=== PATIENT | male | born 1970 | race Caucasian/White ===

== ENCOUNTER 2021-05-18 22:03 | Observation (INO) | payer MEDICARE, SELFPAY ==
[2021-05-18 22:04] VITALS: BP 132/87; PULSE 97; RESP 19; TEMP 36.6; O2SAT 99; BMI 27.2
--- NOTE | 2021-05-18 23:06 | HMH.EDGENADL ---
ED Disposition Clinical Impression: Pyelonephritis due to Escherichia coli Disposition: Admitted As Inpatient Condition on Discharge: Fair - Critical Care Critical Care Time: No Attestation: On 05/18/21, the high probability of a clinically significant, sudden or life threatening deterioration of the following system(s) required my full and direct attention, intervention and personal management. The time I documented below is in addition to time spent performing reported procedures but includes the following listed in this critical care notation. Medical Decision Making - Medical Records Medical records reviewed: Yes: I reviewed the patient's medical records. - Haile Inquiry Pt receiving controlled substance: No Vital Signs: 05/18/21 22:04 Temperature 97.9 F Temperature Source Oral Pulse Rate [Right] 97 H Respiratory Rate 19 Blood Pressure [Right Arm] 132/87 Blood Pressure Mean [Right Arm] 102 Blood Pressure Source [Right Arm] Automatic Cuff 02 Sat by Pulse Oximetry 99 Oxygen Delivery Method Room Air - Lab Data Lab Results 05/18/21 23:12: SARS-CoV-2 (PCR) Not detected, Influenza A Untype (PCR) Not detected, Influenza Type B (PCR) Not detected 05/18/21 23:33: WBC 9.0, RBC 5.26, Hgb 12.4 L, Hct 41.6 L, MCV 79.1 L, MCH 23.6 L, MCHC 29.8 L, RDW 15.1, Plt Count 377, MPV 7.4, Neut % (Auto) 56.5, Lymph % (Auto) 33.7, [place] % (Auto) 5.5, Eos % (Auto) 3.9, Baso % (Auto) 0.5, Neut # (Auto) 5.1, Lymph # (Auto) 3.0, [place] # (Auto) 0.5, Eos # (Auto) 0.4, Baso # (Auto) 0.1 05/18/21 23:33: Sodium 141, Potassium 3.8, Chloride 101, Carbon Dioxide 27, Anion Gap 16.8 H, BUN 12, Creatinine 0.60 L, Estimated Creat Clear 176, Estimated GFR 141, Est GFR ( Amer) 171, Glucose 184 H, Calcium 9.5, Total Bilirubin 0.2, AST 91 H, ALT 97 H, Alkaline Phosphatase 191 H, Total Protein 9.2 H, Albumin 4.2, Globulin 5.0 H, Albumin/Globulin Ratio 0.8 L 05/18/21 23:33: Lactate 2.0 Result diagrams: 05/18/21 23:33 05/18/21 23:33 Orders (Tests/Meds): ED MEDICATIONS Generic Name Dose Route Start Last Admin Trade Name Freq PRN Reason Stop Dose Admin Lactated Ringer's 1,000 mls @ 100 mls/hr 05/18/21 23:30 05/18/21 23:29 Lactated Ringer's 1000 Ml Bag IV 06/17/21 23:29 100 mls/hr .Q10H MARIANA Administration Ertapenem 1 gm/ Sodium 50 mls @ 100 mls/hr 05/18/21 23:45 05/18/21 23:54 Chloride IV 06/01/21 23:44 100 mls/hr Q24H MARIANA Administration Discontinued Medications Generic Name Dose Route Start Last Admin Trade Name Freq PRN Reason Stop Dose Admin Gabapentin 400 mg 05/19/21 00:58 Gabapentin 100mg Capsule PO 05/19/21 00:59 ONCE ONE Ketorolac Tromethamine 15 mg 05/19/21 00:58 Ketorolac 30mg/Ml Vial IV 05/19/21 00:59 ONCE ONE Morphine Sulfate 4 mg 05/18/21 23:28 05/18/21 23:29 Morphine 4mg/Ml Syringe IV 05/18/21 23:29 4 mg ONCE ONE Administration Ondansetron HCl 4 mg 05/18/21 23:28 05/18/21 23:29 Ondansetron 4mg/2ml Vial IV 05/18/21 23:29 4 mg ONCE ONE Administration ORDERS Category Date Time Status Blood Culture Stat Micro 05/18/21 23:33 Received Urine Culture Stat Micro 05/19/21 00:00 Received Medical Decision Narrative: Patient is a 50-year-old male with past medical history of paraplegia, frequent urinary tract infections, chronic indwelling Seg[place] who is being evaluated for a suprapubic catheter. Patient presented to the emergency department with history of stent urinary tract infection. Given this the patient's urologist was contacted, and he informed us that patient had ESBL bacteria which was going to be treated with ertapenem. The elected to collect labs, collect a repeat urine culture, change the patient's [place]. Given his chills, his need for IV antibiotics, as well as concern for patient follow-up given that he did not want to present to his other care team due to the an hour and half way, patient was discussed with the on-call faculty this
--- NOTE | 2021-05-18 23:11 | PC.NURSE ---
@ [phone] P[address] medical exchange for Dr. Vaughn. @ [phone] Dr. Vaughn returned call and s/w Dr. Ferguson. states he was dx with ESBL UTI, sensi to Meropenem. @[phone] Dr. Ferguson s/w Dr. Loya regarding admission.
--- NOTE | 2021-05-18 23:11 | PC.NURSE ---
Have not been able to obtain PIV successfully. Staff to set up for Dr. Ferguson to attempt u/s guided IV.
[2021-05-18 23:17] LABS: Coronavirus 19, PCR Not Detected (NotDetected); Influenza A, PCR Not Detected (NotDetected); Influenza B, PCR Not Detected (NotDetected)
[2021-05-18 23:40] LABS: Basophils # 0.1 K/mm3 (0-0.2); Basophils % 0.5 % (0.1-2.0); Eosinophils # 0.4 K/mm3 (0.0-0.4); Eosinophils % 3.9 % (0.1-12.0); Hematocrit 41.6 % (42.0-52.0); Hemoglobin 12.4 g/dL (14.1-18.0); Lymphocytes % 33.7 % (10-50); Mean Corpuscular HGB Conc 29.8 g/dL (31.8-35.4); Mean Corpuscular Hemoglobin 23.6 pg (27.0-31.2); Mean Corpuscular Volume 79.1 fl (80-94); Mean Platelet Volume 7.4 fl (7.4-10.4); Monocytes # 0.5 K/mm3 (0.1-1.0); Monocytes % 5.5 % (1.7-9.3); Neutrophils # 5.1 K/mm3 (1.8-7.8); Neutrophils % 56.5 % (37.0-80.0); Platelet Count 377 K/mm3 (142-424); Red Blood Count 5.26 M/mm3 (4.60-6.20); Red Cell Distribution Width 15.1 % (11.5-17.5)
[2021-05-18 23:48] LABS: Alanine Aminotransferase 97 U/L (12-78); Albumin Level 4.2 g/dl (3.5-5.0); Albumin/Globulin Ratio 0.8 (1.1-1.8); Alkaline Phosphatase 191 U/L (38-126); Anion Gap 16.8 mEq/L (5-15); Aspartate Amino Transferase 91 U/L (17-59); Bilirubin,Total 0.2 mg/dl (0.2-1.3); Blood Urea Nitrogen 12 mg/dl (9-20); Calcium 9.5 mg/dl (8.4-10.2); Carbon Dioxide 27 mmol/L (22.0-30.0); Chloride 101 mmol/L (98-107); Creatinine Clearance Estimated 176 mL/min (50-200); Estimated Glomerular Filt Rate 141 ml/min (>60); GFR (African American) 171 ML/MIN (>60); Glucose 184 mg/dl (74-100); Potassium 3.8 mmoL/L (3.5-5.1); Sodium 141 mmol/L (136-145); Total Protein,Serum 9.2 g/dl (6.3-8.2)
[2021-05-19] VITALS (7 sets, daily range): BP systolic 122–153; BP diastolic 72–88; PULSE 80–90; RESP 16–21; TEMP 36.6–36.9; O2SAT 94–98; BMI 29.0
[2021-05-19 00:06] LABS: Microscopic, Urine URINE MICROSCOPIC (MICROSCOPIC)
[2021-05-19 00:08] LABS: Appearance,Urine SL CLOUDY (Clear); Blood, Urine 1+ (Negative); Color,Urine YELLOW (Yellow); Glucose,Urine (UA) Negative (Negative); Ketones,Urine TRACE (Negative); Leukocyte Esterase,Urine 1+ (Negative); Nitrate,Urine Negative (Negative); Protein,Urine 2+ (Negative); Specific Gravity, Urine >= 1.030 (1.005-1.030); Urobilinogen,Urine 0.2 EU/dl (0.2)
[2021-05-19 00:19] LABS: Bilirubin,Urine Negative (Negative)
[2021-05-19 00:20] LABS: Bacteria,Urine 3+ /lpf; Mucus,Urine 1+ /lpf; WBC,Urine 50-100 #/hpf (0-3)
--- NOTE | 2021-05-19 01:31 | SUR.OPER ---
patient up to floor via stretcher @ this time
--- NOTE | 2021-05-19 03:59 | PC.NURSE ---
Pt is A/O x4. Pt is paraplegia, his own wheelchair is in room. 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 Pictures in wound note. Pt states his does all dressing changes at home. Noted colostomy bag present. [place]ia is draining dark yellow urine with sedimentation. Pt lungs are CTA, VSS, call light within reach, will continue to monitor.
[2021-05-19 06:05] LABS: Basophils % 0.5 % (0.1-2.0); Eosinophils # 0.4 K/mm3 (0.0-0.4); Eosinophils % 5.4 % (0.1-12.0); Hematocrit 35.3 % (42.0-52.0); Lymphocytes # 2.3 K/mm3 (0.7-4.5); Lymphocytes % 32.9 % (10-50); Mean Corpuscular HGB Conc 29.4 g/dL (31.8-35.4); Mean Corpuscular Hemoglobin 23.6 pg (27.0-31.2); Mean Corpuscular Volume 80.2 fl (80-94); Mean Platelet Volume 6.8 fl (7.4-10.4); Monocytes # 0.4 K/mm3 (0.1-1.0); Monocytes % 6.4 % (1.7-9.3); Neutrophils # 3.8 K/mm3 (1.8-7.8); Neutrophils % 54.9 % (37.0-80.0); Platelet Count 290 K/mm3 (142-424); Red Cell Distribution Width 14.9 % (11.5-17.5); White Blood Count 6.9 K/mm3 (4.8-10.8)
[2021-05-19 06:50] LABS: Hemoglobin 10.4 g/dL (14.1-18.0)
[2021-05-19 06:51] LABS: Chloride 102 mmol/L (98-107); Sodium 136 mmol/L (136-145)
[2021-05-19 06:52] LABS: Potassium 4.4 mmoL/L (3.5-5.1)
[2021-05-19 06:54] LABS: Blood Urea Nitrogen 13 mg/dl (9-20); Creatinine Clearance Estimated 225 mL/min (50-200); Estimated Glomerular Filt Rate 175 ml/min (>60); GFR (African American) 211 ML/MIN (>60)
[2021-05-19 06:55] LABS: Anion Gap 14.4 mEq/L (5-15); Calcium 8.3 mg/dl (8.4-10.2); Carbon Dioxide 24 mmol/L (22.0-30.0); Glucose 228 mg/dl (74-100)
--- NOTE | 2021-05-19 07:28 | P.CONPHA_ITS ---
[facility] Pharmacy VTE Monitoring - Patient Demographics Admission date: 05/19/21 Report Date: 05/19/21 Time: 07:28 Allergies/Adverse Reactions: Patient Allergies diphenhydramine [From Benadryl] Allergy (Intermediate, Verified 05/18/21 22:32) Height: 1.78 m Weight: 92.079 kg Patient Problems: Current Active Problems Pyelonephritis due to Escherichia coli (Acute) - VTE Risk Labs: VTE Related Lab Results Hgb 10.4 g/dL (14.1-18.0) L D 05/19/21 05:27 Hct 35.3 % (42.0-52.0) L 05/19/21 05:27 Plt Count 290 K/mm3 (142-424) 05/19/21 05:27 BUN 13 mg/dl (9-20) 05/19/21 05:27 Creatinine 0.50 mg/dl (0.66-1.25) L 05/19/21 05:27 Estimated Creat Clear 225 mL/min (50-200) 05/19/21 05:27 Clinical Trial Participant: No - Prophylaxis VTE Prophylaxis Ordered?: Yes Types of VTE Prophylaxis: TEDS Knee High
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
--- NOTE | 2021-05-19 09:02 | XR_ITS ---
PROCEDURE: XR CHEST PORTABLE PICC PLAC CLINICAL HISTORY: Confirm PICC line placement COMPARISON: No exams were available for comparison FINDINGS: The cardiomediastinal silhouette and pulmonary vascularity are within normal limits. Right upper extremity PICC line is present. The tip is in good position in the region of the superior vena cava. Lungs are clear bilaterally. There is a bone plate along the right clavicle and postsurgical changes are present at the lower thoracic and upper lumbar spine. No acute bony abnormalities. IMPRESSION: PICC line tip in good position. Dictated by: Nitesh Torres MD 05/19/2021 11:21 Nitesh Torres MD in [place] 05/19/2021 11:21
[2021-05-19 10:19] LABS: POC Glucose,Bedside 209 (70-110)
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
--- NOTE | 2021-05-19 11:49 | SW/DCPLANNER ---
Addendum entered by [facility] 05/19/21 14:10: Марина with [facility] has stated that services for this patient will begin on Saturday05/21/21 if patient discharges home tomorrow as planned. I have asked patients nurse (Danuta) to contact [facility] software validation engineer number [phone] once discharged tomorrow. Addendum entered by [facility] 05/19/21 13:41: Wilbur Soria has stated that this patient is covered at 100%. Patient information/order has also been faxed to [facility]. I will follow up with Марина at [facility] once patient information is reviewed. Wilbur has stated that he will make contact with patients and have medication delivered to patients house [facility]. Addendum entered by [facility] 05/19/21 12:38: Wilbur Soria is currently reviewing patient information. Original Note: I spoke with this patient this AM regarding discharge plans. Patient stated that he resides at home with his whom assist him at home. is currently completing dressing changes at home. Dr Loya has stated that this patient will require a PICC line and IV antibiotics along with wound care at time of discharge. Patient is agreeable to home health services. I have faxed patient information/order to [facility] for home IV antibiotics. I will also set this patient up with home health services once [facility] provides with an out of pocket expense. Patient could discharge home over the weekend.
[2021-05-19 12:32] LABS: POC Glucose,Bedside 271 (70-110)
[2021-05-19 16:09] LABS: POC Glucose,Bedside 279 (70-110)
--- NOTE | 2021-05-19 20:09 | PC.NURSE ---
No acute changes this shift. VSS.
[2021-05-19 22:07] LABS: POC Glucose,Bedside 256 (70-110)
[2021-05-20 04:00] VITALS: BP 125/76; PULSE 96; RESP 18; TEMP 36.7; O2SAT 97
--- NOTE | 2021-05-20 04:37 | PC.NURSE ---
No acute changes. Pt has c/o pain in right leg/hip t/o shift. Medicated per MAR with favorable results. Segovia catheter in place draining clear yellow urine to gravity. Currently resting in bed. VSS. CB in reach. Will continue to monitor.
[2021-05-20 05:34] VITALS: BMI 29.0
[2021-05-20 05:36] LABS: POC Glucose,Bedside 244 (70-110)
[2021-05-20 06:05] LABS: Chloride 102 mmol/L (98-107); Potassium 4.3 mmoL/L (3.5-5.1); Sodium 136 mmol/L (136-145)
[2021-05-20 06:07] LABS: Blood Urea Nitrogen 11 mg/dl (9-20); Creatinine Clearance Estimated 188 mL/min (50-200); Estimated Glomerular Filt Rate 141 ml/min (>60); GFR (African American) 171 ML/MIN (>60)
[2021-05-20 06:08] LABS: Alanine Aminotransferase 88 U/L (12-78); Albumin Level 3.1 g/dl (3.5-5.0); Albumin/Globulin Ratio 0.8 (1.1-1.8); Alkaline Phosphatase 184 U/L (38-126); Anion Gap 12.3 mEq/L (5-15); Aspartate Amino Transferase 115 U/L (17-59); Bilirubin,Total 0.2 mg/dl (0.2-1.3); Calcium 8.6 mg/dl (8.4-10.2); Carbon Dioxide 26 mmol/L (22.0-30.0); Globulin 3.7 g/dL (1.3-3.2); Glucose 250 mg/dl (74-100); Magnesium 1.6 mg/dl (1.6-2.3); Total Protein,Serum 6.8 g/dl (6.3-8.2)
[2021-05-20 06:14] LABS: Basophils % 0.5 % (0.1-2.0); Eosinophils # 0.4 K/mm3 (0.0-0.4); Eosinophils % 6.9 % (0.1-12.0); Hematocrit 35.7 % (42.0-52.0); Hemoglobin 10.4 g/dL (14.1-18.0); Lymphocytes # 1.8 K/mm3 (0.7-4.5); Lymphocytes % 31.8 % (10-50); Mean Corpuscular HGB Conc 29.3 g/dL (31.8-35.4); Mean Corpuscular Hemoglobin 23.5 pg (27.0-31.2); Mean Corpuscular Volume 80.5 fl (80-94); Mean Platelet Volume 7.5 fl (7.4-10.4); Monocytes # 0.3 K/mm3 (0.1-1.0); Monocytes % 5.4 % (1.7-9.3); Neutrophils # 3.2 K/mm3 (1.8-7.8); Neutrophils % 55.4 % (37.0-80.0); Platelet Count 275 K/mm3 (142-424); Red Blood Count 4.43 M/mm3 (4.60-6.20); Red Cell Distribution Width 15.6 % (11.5-17.5); White Blood Count 5.8 K/mm3 (4.8-10.8)
[2021-05-20 06:46] LABS: Hemoglobin A1C 10.5 % (4.0-6.0)
[2021-05-20 08:00] VITALS: BP 143/78; PULSE 89; RESP 16; TEMP 36.6; O2SAT 94
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
--- NOTE | 2021-05-20 13:54 | HMH.PHAINT ---
MEDICATION DISCHARGE COUNSELING COMPLETE. DISCUSSED THE INVANZ INFUSION, WHAT TO EXPECT. PATIENT ENDORSED NO QUESTIONS AT THIS TIME.
[2021-05-20 17:20] LABS: POC Glucose,Bedside 249 (70-110)
== END 2021-05-20 14:24 | disposition home health service (06) ==
LOC: ER 22:13 → 2ND 23:44
PROVIDERS: Admitting Provider Internal Medicine Adolescent Medicine; Emergency Provider Emergency Medicine; Visit Provider Internal Medicine Adolescent Medicine
DX: N12 Tubulo-interstitial nephritis, not specified as acute or chronic (principal); B96.20 Unspecified Escherichia coli [E. coli] as the cause of diseases classified elsewhere; Z79.4 Long term (current) use of insulin; G82.20 Paraplegia, unspecified; Z16.12 Extended spectrum beta lactamase (ESBL) resistance; E11.69 Type 2 diabetes mellitus with other specified complication; M86.661 Other chronic osteomyelitis, right tibia and fibula; B18.2 Chronic viral hepatitis C; G89.29 Other chronic pain; M79.604 Pain in right leg; L98.499 Non-pressure chronic ulcer of skin of other sites with unspecified severity; Z20.822 Contact with and (suspected) exposure to COVID-19; Z79.899 Other long term (current) drug therapy
CPT/HCPCS: G0378; 36415; 36569; 71045; 80048; 80053; 81001; 82962; 83036; 83605; 83735; 85025; 87040; 87086; 87088; 87186; 96365; 96367; 96375; 99284; C1751; C9803; J1335; J2405; U0003; U0005

== ENCOUNTER 2021-06-01 12:30 | Emergency (ER) | payer MEDICARE, SELFPAY ==
[2021-06-01] VITALS (8 sets, daily range): BP systolic 137–151; BP diastolic 80–98; PULSE 90–116; RESP 18–22; TEMP 37.7; O2SAT 93–98; BMI 27.1
[2021-06-01 13:03] LABS: POC Glucose,Bedside 456 (70-110)
[2021-06-01 13:07] LABS: Microscopic, Urine URINE MICROSCOPIC (MICROSCOPIC)
[2021-06-01 13:08] LABS: Appearance,Urine CLEAR (Clear); Bilirubin,Urine Negative (Negative); Blood, Urine TRACE-I (Negative); Color,Urine YELLOW (Yellow); Glucose,Urine (UA) 3+ (Negative); Ketones,Urine Negative (Negative); Leukocyte Esterase,Urine Negative (Negative); Nitrate,Urine Negative (Negative); PH,Urine 5.5 (5.0-8.5); Protein,Urine Negative (Negative); Urobilinogen,Urine 0.2 EU/dl (0.2)
[2021-06-01 13:11] LABS: Chloride 95 mmol/L (98-107); Sodium 134 mmol/L (136-145)
[2021-06-01 13:12] LABS: Potassium 4.5 mmoL/L (3.5-5.1)
[2021-06-01 13:14] LABS: Alanine Aminotransferase 344 U/L (12-78); Albumin Level 4.1 g/dl (3.5-5.0); Albumin/Globulin Ratio 0.9 (1.1-1.8); Alkaline Phosphatase 437 U/L (38-126); Anion Gap 15.5 mEq/L (5-15); Aspartate Amino Transferase 436 U/L (17-59); Bilirubin,Total 1.3 mg/dl (0.2-1.3); Blood Urea Nitrogen 15 mg/dl (9-20); Calcium 9.1 mg/dl (8.4-10.2); Carbon Dioxide 28 mmol/L (22.0-30.0); Creatinine Clearance Estimated 185 mL/min (50-200); Estimated Glomerular Filt Rate 141 ml/min (>60); GFR (African American) 171 ML/MIN (>60); Globulin 4.4 g/dL (1.3-3.2); Total Protein,Serum 8.5 g/dl (6.3-8.2)
[2021-06-01 13:19] LABS: Glucose 465 mg/dl (74-100)
[2021-06-01 13:27] LABS: Bacteria,Urine 1+ /lpf; RBC,Urine Occasional #/hpf (0-3)
--- NOTE | 2021-06-01 14:35 | HMH.EDGENADL ---
ED Disposition Clinical Impression: Diabetes mellitus Qualifiers: Diabetes mellitus type: other specified (including LIGIA) Diabetes mellitus fci insulin use: with fci use Diabetes mellitus complication status: with hyperglycemia Qualified Code(s): E13.65 - Other specified diabetes mellitus with hyperglycemia Disposition: Home, Self-Care Condition on Discharge: Good Instructions: DI for Hyperglycemia -- Adult Additional Instructions: Commend increasing your morning insulin from 75 up to 85. Continue to reassess your blood sugar it is important to drink plenty of fluids. Follow-up with your primary care doctor early next week with your blood sugars so we can know how this is working for you. Is also important to follow-up with the roll mill operator, establish a better plan. Referrals: Herson Loya MD [Primary Care Provider] - - Critical Care Critical Care Time: No Attestation: On 06/01/21, the high probability of a clinically significant, sudden or life threatening deterioration of the following system(s) required my full and direct attention, intervention and personal management. The time I documented below is in addition to time spent performing reported procedures but includes the following listed in this critical care notation. Medical Decision Making - Medical Records Medical records reviewed: Yes: I reviewed the patient's medical records. - Haile Inquiry Pt receiving controlled substance: No Vital Signs: 06/01/21 12:30 06/01/21 13:55 06/01/21 14:30 Temperature 99.8 F H Temperature Source Oral Pulse Rate 107 H 99 H Pulse Rate [Left Radial] 116 H Respiratory Rate 20 18 20 Blood Pressure 147/89 H 151/98 H Blood Pressure [Right Arm] 145/95 H Blood Pressure Mean 123 116 Blood Pressure Mean [Right Arm] 111 Blood Pressure Source Blood Pressure Source [Right Arm] Automatic Cuff Blood Pressure Position Blood Pressure Position [Right Arm] Sitting 02 Sat by Pulse Oximetry 96 98 94 L Oxygen Delivery Method Room Air 06/01/21 15:01 06/01/21 15:30 06/01/21 16:00 Temperature Temperature Source Pulse Rate 96 H 90 90 Pulse Rate [Left Radial] Respiratory Rate 20 20 22 Blood Pressure 139/80 138/80 137/86 Blood Pressure [Right Arm] Blood Pressure Mean 99 95 103 Blood Pressure Mean [Right Arm] Blood Pressure Source Blood Pressure Source [Right Arm] Blood Pressure Position Blood Pressure Position [Right Arm] 02 Sat by Pulse Oximetry 93 L 96 97 Oxygen Delivery Method 06/01/21 16:31 06/01/21 17:04 Temperature 99.8 F H Temperature Source Pulse Rate 98 H 96 H Pulse Rate [Left Radial] Respiratory Rate 20 20 Blood Pressure 140/85 140/85 Blood Pressure [Right Arm] Blood Pressure Mean 101 Blood Pressure Mean [Right Arm] Blood Pressure Source Automatic Cuff Blood Pressure Source [Right Arm] Blood Pressure Position Sitting Blood Pressure Position [Right Arm] 02 Sat by Pulse Oximetry 96 Oxygen Delivery Method Room Air - Lab Data Lab results reviewed: Yes: I reviewed the patient's lab results. Lab Results 06/01/21 12:42: POC Glucose 456 H* 06/01/21 12:50: Urine Color Yellow, Urine Appearance Clear, Urine pH 5.5, Ur Specific [place] 1.020, Urine Protein Negative, Urine Glucose (UA) 3+, Urine Ketones Negative, Urine Blood Trace-i, Urine Nitrate Negative, Urine Bilirubin Negative, Urine Urobilinogen 0.2, Ur Leukocyte Esterase Negative, Urine RBC Occasional, Urine WBC None, Ur Squamous Epith Cells None, Urine Bacteria 1+ 06/01/21 12:50: WBC 7.4, RBC 5.56, Hgb 13.2 L, Hct 44.2, MCV 79.6 L, MCH 23.7 L, MCHC 29.7 L, RDW 15.6, Plt Count 285, MPV 8.2, Neut % (Auto) 51.9, Lymph % (Auto) 37.0, [place] % (Auto) 6.8, Eos % (Auto) 3.6, Baso % (Auto) 0.7, Neut # (Auto) 3.8, Lymph # (Auto) 2.7, [place] # (Auto) 0.5, Eos # (Auto) 0.3, Baso # (Auto) 0.1 06/01/21 12:50: Sodium 134 L, Potassium 4.5, Chloride 95 L, Carbon Dioxide 28, Anion Gap 15.5 H, BUN 15
[2021-06-01 14:44] LABS: Basophils # 0.1 K/mm3 (0-0.2); Basophils % 0.7 % (0.1-2.0); Eosinophils # 0.3 K/mm3 (0.0-0.4); Eosinophils % 3.6 % (0.1-12.0); Hematocrit 44.2 % (42.0-52.0); Hemoglobin 13.2 g/dL (14.1-18.0); Lymphocytes # 2.7 K/mm3 (0.7-4.5); Mean Corpuscular HGB Conc 29.7 g/dL (31.8-35.4); Mean Corpuscular Hemoglobin 23.7 pg (27.0-31.2); Mean Corpuscular Volume 79.6 fl (80-94); Mean Platelet Volume 8.2 fl (7.4-10.4); Monocytes # 0.5 K/mm3 (0.1-1.0); Monocytes % 6.8 % (1.7-9.3); Neutrophils # 3.8 K/mm3 (1.8-7.8); Neutrophils % 51.9 % (37.0-80.0); Platelet Count 285 K/mm3 (142-424); Red Blood Count 5.56 M/mm3 (4.60-6.20); Red Cell Distribution Width 15.6 % (11.5-17.5); White Blood Count 7.4 K/mm3 (4.8-10.8)
[2021-06-01 15:30] LABS: POC Glucose,Bedside 239 (70-110)
== END 2021-06-01 17:05 | disposition home or self-care (01) ==
PROVIDERS: Emergency Provider Emergency Medicine; PCP Internal Medicine Adolescent Medicine
DX: E13.65 Other specified diabetes mellitus with hyperglycemia (principal); Z79.4 Long term (current) use of insulin; I10 Essential (primary) hypertension; F17.210 Nicotine dependence, cigarettes, uncomplicated; K73.9 Chronic hepatitis, unspecified; G82.20 Paraplegia, unspecified
CPT/HCPCS: 80053; 81001; 82009; 82962; 85025; 96365; 96375; 99282; J2405

== ENCOUNTER → 2021-06-06 15:19 | Outpatient (CLI) | payer MEDICARE, SELFPAY ==
[2021-06-06 15:21] LABS: Microscopic, Urine URINE MICROSCOPIC (MICROSCOPIC)
[2021-06-06 15:39] LABS: Appearance,Urine CLOUDY (Clear); Blood, Urine 3+ (Negative); Color,Urine YELLOW (Yellow); Glucose,Urine (UA) Negative (Negative); Ketones,Urine Negative (Negative); Leukocyte Esterase,Urine TRACE (Negative); Nitrate,Urine Negative (Negative); Protein,Urine 1+ (Negative); Specific Gravity, Urine >= 1.030 (1.005-1.030)
[2021-06-06 15:41] LABS: Bilirubin,Urine 1+ (Negative)
[2021-06-06 15:56] LABS: Bacteria,Urine Trace /lpf; RBC,Urine TNTC #/hpf (0-3); Squamous Epithelial Cell,Urine Occasional #/hpf (0-5)
== END ==
LOC: LAB 15:20
PROVIDERS: Visit Provider Internal Medicine Adolescent Medicine
DX: S31.20XA Unspecified open wound of penis, initial encounter (principal); B96.20 Unspecified Escherichia coli [E. coli] as the cause of diseases classified elsewhere
CPT/HCPCS: 81001; 87070; 87077; 87186; 87205

== ENCOUNTER 2021-06-10 17:11 | Emergency (ER) | payer MEDICARE, SELFPAY ==
[2021-06-10 17:36] VITALS: BP 129/65; PULSE 107; RESP 18; TEMP 37.4; O2SAT 98; BMI 25.5
[2021-06-10 17:37] LABS: POC Glucose,Bedside 415 (70-110)
--- NOTE | 2021-06-10 17:44 | PC.NURSE ---
Called RT to request ABG's
--- NOTE | 2021-06-10 17:55 | HMH.EDGENADL ---
ED Disposition Clinical Impression: Paraplegia Diabetes mellitus Qualifiers: Diabetes mellitus type: type 1 Diabetes mellitus complication status: with other specified complication Qualified Code(s): E10.69 - Type 1 diabetes mellitus with other specified complication Chronic pain Qualifiers: Chronic pain type: chronic pain syndrome Qualified Code(s): G89.4 - Chronic pain syndrome Disposition: Home, Self-Care Condition on Discharge: Good Instructions: DI for Hyperglycemia -- Adult Prescriptions: methocarbamoL [Methocarbamol] 750 mg PO QID 7 Days #28 tab Transmission Status: Pending to [email or web address] #[id number] Referrals: Herson Loya MD [Primary Care Provider] - - Critical Care Critical Care Time: No Attestation: On 06/10/21, the high probability of a clinically significant, sudden or life threatening deterioration of the following system(s) required my full and direct attention, intervention and personal management. The time I documented below is in addition to time spent performing reported procedures but includes the following listed in this critical care notation. Medical Decision Making - Medical Records Medical records reviewed: Yes: I reviewed the patient's medical records. - Haile Inquiry Pt receiving controlled substance: Yes Haile was queried for this patient: Yes Reference #:: [id number] Risks and benefits of using a controlled substance: were discussed with pt by me Vital Signs: 06/10/21 17:36 06/10/21 18:35 Temperature 99.3 F Temperature Source Oral Pulse Rate 76 Pulse Rate [Right Radial] 107 H Respiratory Rate 18 16 Blood Pressure 154/84 H Blood Pressure [Right Arm] 129/65 Blood Pressure Mean [Right Arm] 86 Blood Pressure Source Automatic Cuff Blood Pressure Source [Right Arm] Automatic Cuff Blood Pressure Position Sitting Blood Pressure Position [Right Arm] Sitting 02 Sat by Pulse Oximetry 98 98 Oxygen Delivery Method Room Air Room Air - Lab Data Lab Results 06/10/21 17:30: POC Glucose 415 H* 06/10/21 18:15: Urine Color Yellow, Urine Appearance Clear, Urine pH 5.5, Ur Specific [place] >= 1.030, Urine Protein Trace, Urine Glucose (UA) 3+, Urine Ketones Negative, Urine Blood 2+, Urine Nitrate Negative, Urine Bilirubin Negative, Urine Urobilinogen 0.2, Ur Leukocyte Esterase Negative 06/10/21 18:15: WBC 9.2, RBC 5.17, Hgb 12.1 L, Hct 40.4 L, MCV 78.1 L, MCH 23.4 L, MCHC 30.0 L, RDW 16.0, Plt Count 390, MPV 7.5, Neut % (Auto) 65.7, Lymph % (Auto) 24.7, [place] % (Auto) 5.8, Eos % (Auto) 3.1, Baso % (Auto) 0.7, Neut # (Auto) 6.1, Lymph # (Auto) 2.3, [place] # (Auto) 0.5, Eos # (Auto) 0.3, Baso # (Auto) 0.1 06/10/21 18:15: Sodium 134 L, Potassium 4.4, Chloride 97 L, Carbon Dioxide 28, Anion Gap 13.4, BUN 14, Creatinine 0.70, Estimated Creat Clear 166, Estimated GFR 118, Est GFR ( Amer) 143, Glucose 399 H, Calcium 8.9, Total Bilirubin 0.5, AST 38, ALT 34, Alkaline Phosphatase 162 H, Total Protein 8.2, Albumin 4.1, Globulin 4.1 H, Albumin/Globulin Ratio 1.0 L, Acetone Level None detected 06/10/21 18:30: VBG pH 7.37, VBG pCO2 43.7, VBG pO2 41.0 H, VBG HCO3 24.5, VBG Total CO2 25.8, VBG O2 Saturation 75.8 H, VBG Base Excess -0.9 Result diagrams: 06/10/21 18:15 06/10/21 18:15 Orders (Tests/Meds): ED MEDICATIONS Generic Name Dose Route Start Last Admin Trade Name Freq PRN Reason Stop Dose Admin Sodium Chloride 1,000 mls @ 999 mls/hr 06/10/21 17:45 06/10/21 18:21 Sod Chlor 0.9% 1000ml Bag IV 06/10/21 18:45 999 mls/hr .[id number] MARIANA Administration Discontinued Medications Generic Name Dose Route Start Last Admin Trade Name Freq PRN Reason Stop Dose Admin Insulin Human Regular 10 unit 06/10/21 18:38 Insulin Human Regular 100 Units/Ml 10ml Vial IVP 06/10/21 18:39 ONCE ONE Morphine Sulfate 4 mg 06/10/21 17:34 06/10/21 18:23 Morphine 4mg/Ml Syringe IV 06/10/21 17:35 4 mg ONCE ONE Administration Ondansetron HCl 4 mg 06/10/21 17:34 11
[2021-06-10 18:22] LABS: Microscopic, Urine URINE MICROSCOPIC (MICROSCOPIC)
[2021-06-10 18:23] LABS: Basophils # 0.1 K/mm3 (0-0.2); Basophils % 0.7 % (0.1-2.0); Eosinophils # 0.3 K/mm3 (0.0-0.4); Eosinophils % 3.1 % (0.1-12.0); Hematocrit 40.4 % (42.0-52.0); Hemoglobin 12.1 g/dL (14.1-18.0); Lymphocytes # 2.3 K/mm3 (0.7-4.5); Lymphocytes % 24.7 % (10-50); Mean Corpuscular Hemoglobin 23.4 pg (27.0-31.2); Mean Corpuscular Volume 78.1 fl (80-94); Mean Platelet Volume 7.5 fl (7.4-10.4); Monocytes # 0.5 K/mm3 (0.1-1.0); Monocytes % 5.8 % (1.7-9.3); Neutrophils # 6.1 K/mm3 (1.8-7.8); Neutrophils % 65.7 % (37.0-80.0); Platelet Count 390 K/mm3 (142-424); Red Blood Count 5.17 M/mm3 (4.60-6.20); White Blood Count 9.2 K/mm3 (4.8-10.8)
[2021-06-10 18:25] LABS: Appearance,Urine CLEAR (Clear); Bilirubin,Urine Negative (Negative); Blood, Urine 2+ (Negative); Color,Urine YELLOW (Yellow); Glucose,Urine (UA) 3+ (Negative); Ketones,Urine Negative (Negative); Leukocyte Esterase,Urine Negative (Negative); Nitrate,Urine Negative (Negative); PH,Urine 5.5 (5.0-8.5); Protein,Urine TRACE (Negative); Specific Gravity, Urine >= 1.030 (1.005-1.030); Urobilinogen,Urine 0.2 EU/dl (0.2)
[2021-06-10 18:29] LABS: Chloride 97 mmol/L (98-107); Potassium 4.4 mmoL/L (3.5-5.1); Sodium 134 mmol/L (136-145)
[2021-06-10 18:30] VITALS: BP 154/84; PULSE 97; RESP 15; O2SAT 95
[2021-06-10 18:31] LABS: Blood Urea Nitrogen 14 mg/dl (9-20); Creatinine Clearance Estimated 166 mL/min (50-200); Estimated Glomerular Filt Rate 118 ml/min (>60); GFR (African American) 143 ML/MIN (>60)
[2021-06-10 18:32] LABS: VBG Base Excess -0.9 mmol/L (-2.4-2.3); VBG HCO3 24.5 mmol/L (23-30); VBG Oxygen Saturation 75.8 % (50-70); VBG PCO2 43.7 mmol/L (35-51); VBG PH 7.37 mmol/L (7.31-7.41); VBG Total CO2 25.8 mmol/L (23-27)
[2021-06-10 18:32] LABS: Alanine Aminotransferase 34 U/L (12-78); Albumin Level 4.1 g/dl (3.5-5.0); Alkaline Phosphatase 162 U/L (38-126); Anion Gap 13.4 mEq/L (5-15); Aspartate Amino Transferase 38 U/L (17-59); Bilirubin,Total 0.5 mg/dl (0.2-1.3); Calcium 8.9 mg/dl (8.4-10.2); Carbon Dioxide 28 mmol/L (22.0-30.0); Globulin 4.1 g/dL (1.3-3.2); Glucose 399 mg/dl (74-100); Total Protein,Serum 8.2 g/dl (6.3-8.2)
[2021-06-10 18:35] VITALS: BP 154/84; PULSE 76; RESP 16; O2SAT 98
[2021-06-10 18:46] LABS: Acetone, Serum (Rapid) None Detected (None Detect)
[2021-06-10 19:05] LABS: Squamous Epithelial Cell,Urine Occasional #/hpf (0-5)
[2021-06-10 20:21] VITALS: BP 143/80; PULSE 78; RESP 18; TEMP 36.8; O2SAT 96
== END 2021-06-10 20:25 | disposition home or self-care (01) ==
PROVIDERS: Emergency Provider Emergency Medicine; PCP Internal Medicine Adolescent Medicine
DX: E10.65 Type 1 diabetes mellitus with hyperglycemia (principal); M83.8 Other adult osteomalacia; L89.154 Pressure ulcer of sacral region, stage 4; F17.210 Nicotine dependence, cigarettes, uncomplicated; I10 Essential (primary) hypertension; G82.20 Paraplegia, unspecified
CPT/HCPCS: 80053; 81001; 82009; 82803; 82962; 85025; 96365; 96375; 99282; J2405

== ENCOUNTER 2021-06-13 09:53 | Outpatient (CLI) | payer MEDICARE, SELFPAY ==
[2021-06-13 11:05] VITALS: BMI 29.9
--- NOTE | 2021-06-13 11:06 | XR_ITS ---
PROCEDURE: XR CHEST PORTABLE PICC PLAC CLINICAL HISTORY: picc placement COMPARISON: CR XR CHEST PORTABLE PICC PLAC from 05/19/2021 FINDINGS: Left upper extremity PICC line has been placed. The tip is in good position in the region of the superior vena cava. Right-sided PICC line is been removed. Postsurgical changes are present with a metallic hardware along the right clavicle and in the upper lumbar IMPRESSION: Left upper extremity PICC line tip in good position Dictated by: Nitesh Torres MD 06/13/2021 11:37 Nitesh Torres MD in [facility] 06/13/2021 11:37
[2021-06-13 11:49] VITALS: BP 160/93; PULSE 92; RESP 18; O2SAT 98
[2021-06-13 12:55] VITALS: BP 144/78; PULSE 54; RESP 18
== END 2021-06-13 12:55 | disposition home or self-care (01) ==
LOC: INF 09:54
PROVIDERS: PCP Internal Medicine Adolescent Medicine; Visit Provider Internal Medicine Adolescent Medicine
DX: N39.0 Urinary tract infection, site not specified (principal); B96.20 Unspecified Escherichia coli [E. coli] as the cause of diseases classified elsewhere; Z45.2 Encounter for adjustment and management of vascular access device
CPT/HCPCS: 36410; 36569; 71045; 96365; C1751; J1335

== ENCOUNTER → 2021-06-15 15:07 | Outpatient (CLI) | payer MEDICARE, SELFPAY ==
[2021-06-15 15:49] LABS: Basophils # 0.1 K/mm3 (0-0.2); Basophils % 0.8 % (0.1-2.0); Eosinophils # 0.4 K/mm3 (0.0-0.4); Eosinophils % 4.5 % (0.1-12.0); Hemoglobin 11.7 g/dL (14.1-18.0); Lymphocytes # 2.8 K/mm3 (0.7-4.5); Lymphocytes % 34.2 % (10-50); Mean Corpuscular HGB Conc 30.9 g/dL (31.8-35.4); Mean Corpuscular Hemoglobin 23.5 pg (27.0-31.2); Mean Corpuscular Volume 75.9 fl (80-94); Mean Platelet Volume 7.4 fl (7.4-10.4); Monocytes # 0.5 K/mm3 (0.1-1.0); Monocytes % 5.9 % (1.7-9.3); Neutrophils # 4.5 K/mm3 (1.8-7.8); Neutrophils % 54.6 % (37.0-80.0); Platelet Count 374 K/mm3 (142-424); Red Cell Distribution Width 16.1 % (11.5-17.5); White Blood Count 8.2 K/mm3 (4.8-10.8)
[2021-06-15 17:04] LABS: Alanine Aminotransferase 19 U/L (12-78); Albumin Level 3.7 g/dl (3.5-5.0); Alkaline Phosphatase 133 U/L (38-126); Anion Gap 14.2 mEq/L (5-15); Aspartate Amino Transferase 24 U/L (17-59); Bilirubin,Total 0.2 mg/dl (0.2-1.3); Blood Urea Nitrogen 13 mg/dl (9-20); Calcium 8.7 mg/dl (8.4-10.2); Carbon Dioxide 28 mmol/L (22.0-30.0); Chloride 100 mmol/L (98-107); Estimated Glomerular Filt Rate 118 ml/min (>60); GFR (African American) 143 ML/MIN (>60); Globulin 3.8 g/dL (1.3-3.2); Glucose 270 mg/dl (74-100); Potassium 4.2 mmoL/L (3.5-5.1); Sodium 138 mmol/L (136-145); Total Protein,Serum 7.5 g/dl (6.3-8.2)
== END ==
LOC: LAB 15:08
PROVIDERS: Visit Provider Nurse Practitioner
DX: B18.2 Chronic viral hepatitis C (principal)
CPT/HCPCS: 80053; 85025; 87522

== ENCOUNTER 2021-06-30 23:11 | Emergency (ER) | payer MEDICARE, SELFPAY ==
[2021-06-30 23:13] VITALS: BP 129/89; PULSE 100; RESP 16; TEMP 37.2; O2SAT 99; BMI 27.8
[2021-06-30 23:30] VITALS: BP 124/80; PULSE 97; O2SAT 97
[2021-06-30 23:36] VITALS: BMI 27.8
[2021-06-30 23:54] LABS: Basophils # 0.1 K/mm3 (0-0.2); Basophils % 0.7 % (0.1-2.0); Eosinophils # 0.3 K/mm3 (0.0-0.4); Eosinophils % 3.7 % (0.1-12.0); Hematocrit 38.8 % (42.0-52.0); Lymphocytes % 35.6 % (10-50); Mean Corpuscular Hemoglobin 23.5 pg (27.0-31.2); Mean Corpuscular Volume 75.9 fl (80-94); Mean Platelet Volume 8.1 fl (7.4-10.4); Monocytes # 0.4 K/mm3 (0.1-1.0); Monocytes % 5.2 % (1.7-9.3); Neutrophils # 4.6 K/mm3 (1.8-7.8); Neutrophils % 54.9 % (37.0-80.0); Platelet Count 328 K/mm3 (142-424); Red Blood Count 5.11 M/mm3 (4.60-6.20); Red Cell Distribution Width 16.1 % (11.5-17.5); White Blood Count 8.4 K/mm3 (4.8-10.8)
[2021-07-01 00:02] LABS: Lactic Acid 1.7 mmol/L (0.7-2.1)
[2021-07-01 00:09] LABS: Alanine Aminotransferase 11 U/L (12-78); Albumin Level 3.9 g/dl (3.5-5.0); Alkaline Phosphatase 153 U/L (38-126); Anion Gap 10.9 mEq/L (5-15); Aspartate Amino Transferase 21 U/L (17-59); Bilirubin,Total 0.3 mg/dl (0.2-1.3); Blood Urea Nitrogen 15 mg/dl (9-20); Calcium 8.8 mg/dl (8.4-10.2); Carbon Dioxide 27 mmol/L (22.0-30.0); Chloride 98 mmol/L (98-107); Creatinine Clearance Estimated 162 mL/min (50-200); Estimated Glomerular Filt Rate 118 ml/min (>60); GFR (African American) 143 ML/MIN (>60); Glucose 382 mg/dl (74-100); Potassium 3.9 mmoL/L (3.5-5.1); Sodium 132 mmol/L (136-145); Total Protein,Serum 7.9 g/dl (6.3-8.2)
[2021-07-01 00:12] LABS: C-Reactive Protein 69.9 mg/L (0-4)
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
[2021-07-01 00:26] LABS: Procalcitonin 0.068 ng/mL (0.0-2.0)
[2021-07-01 00:34] LABS: Erythrocyte Sedimentation Rate 22 mm/hr (0-20)
[2021-07-01 00:40] VITALS: BP 124/77; PULSE 96; O2SAT 97
[2021-07-01 01:00] VITALS: BP 128/78; PULSE 96; O2SAT 97
[2021-07-01 01:17] LABS: Microscopic, Urine URINE MICROSCOPIC (MICROSCOPIC)
[2021-07-01 01:18] LABS: Appearance,Urine CLEAR (Clear); Bilirubin,Urine Negative (Negative); Blood, Urine 2+ (Negative); Color,Urine YELLOW (Yellow); Glucose,Urine (UA) 3+ (Negative); Ketones,Urine Negative (Negative); Leukocyte Esterase,Urine Negative (Negative); Nitrate,Urine Negative (Negative); PH,Urine 5.5 (5.0-8.5); Protein,Urine 2+ (Negative); Specific Gravity, Urine >= 1.030 (1.005-1.030); Urobilinogen,Urine 0.2 EU/dl (0.2)
[2021-07-01 01:21] LABS: Calcium Oxalate Crystals,Urine 2+ /lpf; Squamous Epithelial Cell,Urine Occasional #/hpf (0-5)
[2021-07-01 01:30] VITALS: BP 125/80; PULSE 95; O2SAT 96
--- NOTE | 2021-07-01 01:51 | HMH.EDGENADL ---
ED Disposition Clinical Impression: Paraplegia, Sacral decubitus ulcer, stage IV, Chronic pain disorder Type 2 diabetes mellitus Qualifiers: Diabetes mellitus penitentiary insulin use: unspecified exterminator helper termite insulin use status Diabetes mellitus complication status: with other specified complication Qualified Code(s): E11.69 - Type 2 diabetes mellitus with other specified complication Osteomyelitis Qualifiers: Osteomyelitis type: unspecified type Osteomyelitis location: multiple sites Qualified Code(s): M86.9 - Osteomyelitis, unspecified Disposition: Home, Self-Care Condition on Discharge: Good Instructions: DI for Acute Pain -- Adult Additional Instructions: call pcp in am and continue present meds Referrals: Herson Loya MD [Primary Care Provider] - - Critical Care Critical Care Time: No Attestation: On 06/30/21, the high probability of a clinically significant, sudden or life threatening deterioration of the following system(s) required my full and direct attention, intervention and personal management. The time I documented below is in addition to time spent performing reported procedures but includes the following listed in this critical care notation. Medical Decision Making - Medical Records Medical records reviewed: Yes: I reviewed the patient's medical records. - Haile Inquiry Pt receiving controlled substance: No Vital Signs: 06/30/21 23:13 06/30/21 23:30 07/01/21 00:40 Temperature 99.0 F Temperature Source Oral Pulse Rate 97 H 96 H Pulse Rate [Right] 100 H Respiratory Rate 16 Blood Pressure 124/80 124/77 Blood Pressure [Right Arm] 129/89 Blood Pressure Mean [Right Arm] 102 02 Sat by Pulse Oximetry 99 97 97 07/01/21 01:00 07/01/21 01:30 Temperature Temperature Source Pulse Rate 96 H 95 H Pulse Rate [Right] Respiratory Rate Blood Pressure 128/78 125/80 Blood Pressure [Right Arm] Blood Pressure Mean [Right Arm] 02 Sat by Pulse Oximetry 97 96 - Lab Data Lab results reviewed: Yes: I reviewed the patient's lab results. Lab Results 06/30/21 23:30: WBC 8.4, RBC 5.11, Hgb 12.0 L, Hct 38.8 L, MCV 75.9 L, MCH 23.5 L, MCHC 31.0 L, RDW 16.1, Plt Count 328, MPV 8.1, Neut % (Auto) 54.9, Lymph % (Auto) 35.6, [place] % (Auto) 5.2, Eos % (Auto) 3.7, Baso % (Auto) 0.7, Neut # (Auto) 4.6, Lymph # (Auto) 3.0, [place] # (Auto) 0.4, Eos # (Auto) 0.3, Baso # (Auto) 0.1, ESR 22 H 06/30/21 23:30: Sodium 132 L, Potassium 3.9, Chloride 98, Carbon Dioxide 27, Anion Gap 10.9, BUN 15, Creatinine 0.70, Estimated Creat Clear 162, Estimated GFR 118, Est GFR ( Amer) 143, Glucose 382 H, Calcium 8.8, Total Bilirubin 0.3, AST 21, ALT 11 L, Alkaline Phosphatase 153 H, C-Reactive Protein 69.9 H, Total Protein 7.9, Albumin 3.9, Globulin 4.0 H, Albumin/Globulin Ratio 1.0 L, Procalcitonin 0.068 06/30/21 23:30: Lactate 1.7 07/01/21 01:12: Urine Color Yellow, Urine Appearance Clear, Urine pH 5.5, Ur Specific [place] >= 1.030, Urine Protein 2+, Urine Glucose (UA) 3+, Urine Ketones Negative, Urine Blood 2+, Urine Nitrate Negative, Urine Bilirubin Negative, Urine Urobilinogen 0.2, Ur Leukocyte Esterase Negative, Urine RBC 10-20, Urine WBC 3-5, Ur Squamous Epith Cells Occasional, Calcium Oxalate Crystal 2+ 07/01/21 02:05: POC Glucose 372 H* Result diagrams: 06/30/21 23:30 06/30/21 23:30 Orders (Tests/Meds): ED MEDICATIONS Discontinued Medications Generic Name Dose Route Start Last Admin Trade Name Freq PRN Reason Stop Dose Admin Iopamidol 75 ml 07/01/21 00:42 07/01/21 00:44 Iopamidol-370 (76%);100ml Bottle IV 07/01/21 00:43 75 ml ONCE ONE Administration Morphine Sulfate 4 mg 07/01/21 01:53 Morphine 4mg/Ml Syringe IV 07/01/21 01:54 ONCE ONE Ondansetron HCl 4 mg 07/01/21 01:53 Ondansetron 4mg/2ml Vial IV 07/01/21 01:54 ONCE ONE Sodium Chloride 10 ml 07/01/21 00:42 07/01/21 00:44 Sodium Chloride 0.9% 10ml Syr (Rad Only) IV 07/01/21 00:43 10 ml ON
[2021-07-01 02:12] LABS: POC Glucose,Bedside 372 (70-110)
[2021-07-01 02:49] VITALS: BP 125/78; PULSE 84; RESP 18; TEMP 36.9; O2SAT 98
== END 2021-07-01 03:03 | disposition home or self-care (01) ==
PROVIDERS: Emergency Provider Emergency Medicine; PCP Internal Medicine Adolescent Medicine
DX: L89.154 Pressure ulcer of sacral region, stage 4 (principal); G82.20 Paraplegia, unspecified; G89.4 Chronic pain syndrome; E11.69 Type 2 diabetes mellitus with other specified complication; M86.9 Osteomyelitis, unspecified; F17.210 Nicotine dependence, cigarettes, uncomplicated; I10 Essential (primary) hypertension; Z79.899 Other long term (current) drug therapy
CPT/HCPCS: 74177; 80053; 81001; 82962; 83605; 84145; 85025; 85651; 86140; 87040; 96365; 96375; 96376; 99283; J2405; Q9967

== ENCOUNTER 2021-07-07 18:05 | Emergency (ER) | payer MEDICARE, SELFPAY ==
[2021-07-07 18:06] VITALS: BP 124/81; PULSE 103; RESP 18; TEMP 37; O2SAT 98; BMI 27.1
[2021-07-07 18:13] VITALS: BP 124/81
--- NOTE | 2021-07-07 18:33 | XR_ITS ---
PROCEDURE INFORMATION: Exam: XR Chest Exam date and time: 07/07/2021 6:33 PM Age: 50 years old Clinical indication: Cough and other: Congestion; Additional info: Cough, chest congestion x2 days TECHNIQUE: Imaging protocol: XR of the chest. Views: 1 view. COMPARISON: CR XR CHEST PORTABLE PICC PLAC 06/13/2021 11:14 AM FINDINGS: Tubes, catheters and devices: Left-sided PICC catheter overlies the SVC. Lungs: Unremarkable. No consolidation. Pleural spaces: Unremarkable. No pleural effusion. No pneumothorax. Heart/Mediastinum: Unremarkable. No cardiomegaly. Bones/joints: Internal fixation thoracolumbar junction. Internal fixation distal right clavicle. Healed fracture midshaft left clavicle. IMPRESSION: No acute cardiopulmonary findings.
[2021-07-07 19:03] LABS: Basophils % 0.6 % (0.1-2.0); Eosinophils # 0.5 K/mm3 (0.0-0.4); Eosinophils % 6.2 % (0.1-12.0); Hematocrit 37.6 % (42.0-52.0); Hemoglobin 11.9 g/dL (14.1-18.0); Lymphocytes # 1.9 K/mm3 (0.7-4.5); Lymphocytes % 25.6 % (10-50); Mean Corpuscular HGB Conc 31.5 g/dL (31.8-35.4); Mean Corpuscular Hemoglobin 23.1 pg (27.0-31.2); Mean Corpuscular Volume 73.5 fl (80-94); Mean Platelet Volume 7.2 fl (7.4-10.4); Monocytes # 0.4 K/mm3 (0.1-1.0); Monocytes % 4.8 % (1.7-9.3); Neutrophils # 4.7 K/mm3 (1.8-7.8); Neutrophils % 62.8 % (37.0-80.0); Platelet Count 297 K/mm3 (142-424); Red Blood Count 5.12 M/mm3 (4.60-6.20); Red Cell Distribution Width 15.3 % (11.5-17.5); White Blood Count 7.5 K/mm3 (4.8-10.8)
[2021-07-07 19:08] LABS: Alanine Aminotransferase 18 U/L (12-78); Albumin Level 3.7 g/dl (3.5-5.0); Albumin/Globulin Ratio 0.9 (1.1-1.8); Alkaline Phosphatase 164 U/L (38-126); Anion Gap 10.8 mEq/L (5-15); Aspartate Amino Transferase 25 U/L (17-59); Bilirubin,Total 0.3 mg/dl (0.2-1.3); Blood Urea Nitrogen 17 mg/dl (9-20); Calcium 8.8 mg/dl (8.4-10.2); Carbon Dioxide 27 mmol/L (22.0-30.0); Chloride 98 mmol/L (98-107); Creatinine Clearance Estimated 139 mL/min (50-200); Estimated Glomerular Filt Rate 102 ml/min (>60); GFR (African American) 123 ML/MIN (>60); Globulin 4.1 g/dL (1.3-3.2); Glucose 261 mg/dl (74-100); Potassium 3.8 mmoL/L (3.5-5.1); Sodium 132 mmol/L (136-145); Total Protein,Serum 7.8 g/dl (6.3-8.2)
[2021-07-07 19:46] LABS: Coronavirus 19, PCR Not Detected (NotDetected); Influenza A, PCR Not Detected (NotDetected); Influenza B, PCR Not Detected (NotDetected)
[2021-07-07 20:04] VITALS: BP 129/71
[2021-07-07 20:09] LABS: Lactic Acid 1.3 mmol/L (0.7-2.1)
--- NOTE | 2021-07-07 20:30 | HMH.EDGENADL ---
ED Disposition <AkhilAlcira - Last Filed: 07/07/21 21:40> Condition on Discharge: Good - Critical Care Critical Care Time: No <Rober Younger - Last Filed: 07/07/21 23:04> Clinical Impression: Sacral decubitus ulcer, stage IV Upper respiratory infection Qualifiers: URI type: unspecified viral URI Qualified Code(s): J06.9 - Acute upper respiratory infection, unspecified Diabetes mellitus Qualifiers: Diabetes mellitus type: type 2 Diabetes mellitus exterminator insulin use: unspecified exterminator insulin use status Diabetes mellitus complication status: with other specified complication Qualified Code(s): E11.69 - Type 2 diabetes mellitus with other specified complication Disposition: Home, Self-Care Instructions: DI for Acute Bronchitis Additional Instructions: call pcp in am Referrals: Herson Loya MD [Primary Care Provider] - Attestation: On 07/07/21, the high probability of a clinically significant, sudden or life threatening deterioration of the following system(s) required my full and direct attention, intervention and personal management. The time I documented below is in addition to time spent performing reported procedures but includes the following listed in this critical care notation. Medical Decision Making - Lab Data Result diagrams: 07/07/21 18:43 07/07/21 18:43 <LyssaAlcira koehler - Last Filed: 07/07/21 21:40> - Medical Records Medical records reviewed: Yes: I reviewed the patient's medical records. - Haile Inquiry Pt receiving controlled substance: No - Lab Data Lab results reviewed: Yes: I reviewed the patient's lab results. Result diagrams: 07/07/21 18:43 07/07/21 18:43 <Rober Younger S - Last Filed: 07/07/21 23:04> Vital Signs: 07/07/21 18:06 07/07/21 18:13 07/07/21 20:04 Temperature 98.6 F Temperature Source Oral Pulse Rate [Left Radial] 103 H Respiratory Rate 18 Blood Pressure 124/81 129/71 Blood Pressure [Left Arm] 124/81 Blood Pressure Mean 91 77 Blood Pressure Mean [Left Arm] 95 Blood Pressure Source [Left Arm] Automatic Cuff Blood Pressure Position [Left Arm] Sitting 02 Sat by Pulse Oximetry 98 Oxygen Delivery Method Room Air 07/07/21 20:31 07/07/21 21:00 Temperature Temperature Source Pulse Rate [Left Radial] Respiratory Rate Blood Pressure 127/80 117/86 Blood Pressure [Left Arm] Blood Pressure Mean 95 95 Blood Pressure Mean [Left Arm] Blood Pressure Source [Left Arm] Blood Pressure Position [Left Arm] 02 Sat by Pulse Oximetry Oxygen Delivery Method - Lab Data Lab Results 07/07/21 18:20: SARS-CoV-2 (PCR) Not detected, Influenza A Untype (PCR) Not detected, Influenza Type B (PCR) Not detected 07/07/21 18:43: WBC 7.5, RBC 5.12, Hgb 11.9 L, Hct 37.6 L, MCV 73.5 L, MCH 23.1 L, MCHC 31.5 L, RDW 15.3, Plt Count 297, MPV 7.2 L, Neut % (Auto) 62.8, Lymph % (Auto) 25.6, [place] % (Auto) 4.8, Eos % (Auto) 6.2, Baso % (Auto) 0.6, Neut # (Auto) 4.7, Lymph # (Auto) 1.9, [place] # (Auto) 0.4, Eos # (Auto) 0.5 H, Baso # (Auto) 0.0 07/07/21 18:43: Sodium 132 L, Potassium 3.8, Chloride 98, Carbon Dioxide 27, Anion Gap 10.8, BUN 17, Creatinine 0.80, Estimated Creat Clear 139, Estimated GFR 102, Est GFR ( Amer) 123, Glucose 261 H, Calcium 8.8, Total Bilirubin 0.3, AST 25, ALT 18, Alkaline Phosphatase 164 H, Total Protein 7.8, Albumin 3.7, Globulin 4.1 H, Albumin/Globulin Ratio 0.9 L 07/07/21 19:53: Lactate 1.3 Orders (Tests/Meds): ED MEDICATIONS Generic Name Dose Route Start Last Admin Trade Name Freq PRN Reason Stop Dose Admin Lactated Ringer's 500 mls @ 999 mls/hr 07/07/21 21:45 07/07/21 21:50 Lactated Ringer's 1000 Ml Bag IV 07/07/21 22:15 999 mls/hr .Q31M MARIANA Administration Discontinued Medications Generic Name Dose Route Start Last Admin Trade Name Freq PRN Reason Stop Dose Admin Morphine Sulfate 4 mg 07/07/21 19:57 07/07/21 20:02 Morphine 4mg/Ml Syringe IV 07/07/21
[2021-07-07 20:31] VITALS: BP 127/80
[2021-07-07 21:00] VITALS: BP 117/86
[2021-07-07 21:48] LABS: Adenovirus,PCR Not Detected (NotDetected); Bordetella Pertussis Not Detected (NotDetected); Chlamydophila Pneumoniae, PCR Not Detected (NotDetected); Coronavirus 19, PCR Not Detected (NotDetected); Coronavirus 229E Not Detected (NotDetected); Coronavirus NL63 Not Detected (NotDetected); Coronavirus OC43 Not Detected (NotDetected); Coronovirus HKU1,PCR Not Detected (NotDetected); Influenza A, PCR Not Detected (NotDetected); Influenza AH1, 2009 Not Detected (NotDetected); Influenza AH1, PCR Not Detected (NotDetected); Influenza AH3,PCR Not Detected (NotDetected); Influenza B, PCR Not Detected (NotDetected); Mycoplasma Pneumoniae, PCR Not Detected (NotDetected); Parainfluenza 1, PCR Not Detected (NotDetected); Parainfluenza 2, PCR Not Detected (NotDetected); Parainfluenza 3, PCR Not Detected (NotDetected); Parainfluenza 4, PCR Not Detected (NotDetected); Respiratory Syncytial Virus Not Detected (NotDetected); Rhinovirus/Enterovirus Not Detected (NotDetected)
[2021-07-07 23:06] VITALS: BP 117/86; PULSE 80; RESP 18; TEMP 36.8; O2SAT 97
[2021-07-07 23:11] LABS: Human Metapneumovirus Detected (NotDetected)
== END 2021-07-07 23:20 | disposition home or self-care (01) ==
PROVIDERS: Emergency Medicine; Emergency Provider Emergency Medicine; PCP Internal Medicine Adolescent Medicine
DX: L89.154 Pressure ulcer of sacral region, stage 4 (principal); J06.9 Acute upper respiratory infection, unspecified; E11.65 Type 2 diabetes mellitus with hyperglycemia; F17.210 Nicotine dependence, cigarettes, uncomplicated; I10 Essential (primary) hypertension; Z79.899 Other long term (current) drug therapy; Z20.822 Contact with and (suspected) exposure to COVID-19
CPT/HCPCS: 71045; 80053; 83605; 85025; 87040; 87581; 87632; 87798; 96374; 96375; 99283; C9803; J2405; U0003; U0005